=== PATIENT | female | born 1970 | race Caucasian/White ===

== ENCOUNTER 2021-01-13 21:14 | Emergency (ER) | payer OTHER ==
[~2021-01-13 21:14] MED LIST: AUGMENTIN 875-1 EACH PO; DUONEB 2.5-0.5M1 AMP NEB; PREDNISONE 20MG20 MG PO; TESSALON PERLE100 M1 PO; VENTOLIN HFA IN18 GM INH
[2021-01-13 21:42] LABS: BASOPHIL 0.2 % (0-2); EOSINOPHIL 0 % (0-5); HCT 41.7 % (37.0-47.0); HGB 12.3 g/dl (12.5-16.0); LYMPHOCYTE 9.5 % (15-48); MCHC 29.5 g/dL (32.0-36.0); MCV 81.3 fL (78.0-100.0); MONOCYTE 5.1 % (0-12); MPV 9.8 fL (6.0-9.5); NEUTROPHIL 84.1 % (41-80); NRBC 0.4; PLT 181 K/uL (150-400); RBC 5.13 M/uL (4.20-5.40); RDW 20.2 % (11.5-14.0); WBC 4.8 K/uL (4.0-10.5)
[2021-01-13 21:51] LABS: INR 1.05 (0.9-1.2); PROTHROMBIN TIME 13.1 SECONDS (11.8-13.4); PTT 32.1 SECONDS (24.4-34.7)
[2021-01-13 21:52] LABS: D-DIMER 0.61 ug/mLFEU (0.00-0.41)
[2021-01-13 22:04] LABS: PRO-BNP 288 pg/mL (<125)
[2021-01-13 22:10] LABS: ALBUMIN 3.1 g/dL (3.4-5.0); BILIRUBIN - TOTAL 0.2 mg/dL (0.2-1.0); BUN/CREAT RATIO (CALC) 14.3 RATIO; C-REACTIVE PROTEIN 9.8 mg/dL (<=0.90); CREATININE 0.77 mg/dL (0.51-0.95); GLOBULIN (CALCULATION) 3.8 g/dL; MAGNESIUM 1.6 mg/dL (1.8-2.4); POTASSIUM 3.8 mmol/L (3.5-5.1); TOTAL PROTEIN 6.9 g/dL (6.4-8.2)
[2021-01-13 22:26] LABS: INFLUENZA A NAA NEGATIVE (NEGATIVE)
[2021-01-13 22:29] LABS: CORONAVIRUS 2019 SARS-COV-2 POSITIVE (NEGATIVE)
== END 2021-01-14 03:47 | disposition other institution (70) ==
LOC: FER 21:14
PROVIDERS: Emergency Medicine
DX: U07.1 COVID-19 (principal); R09.02 Hypoxemia; J44.9 Chronic obstructive pulmonary disease, unspecified; E78.5 Hyperlipidemia, unspecified; Z79.899 Other long term (current) drug therapy
CPT/HCPCS: 36415; 36600; 71250; 80053; 82728; 82803; 83605; 83615; 83735; 83880; 84145; 84484; 85025; 85379; 85610; 85730; 86140; 87040; 93005; J1100; J1885; J2405; U0002